=== PATIENT | female | born 1965 | race Caucasian/White ===

== ENCOUNTER 2020-03-20 18:17 | Emergency (ER) | payer BC ==
[2020-03-20] MEDS ORDERED: Lidocaine 1% PF 5 ML VIAL ONE (18:47)
== END 2020-03-20 19:44 | disposition home or self-care (01) ==
LOC: ERS 18:17
DX: S51.852A Open bite of left forearm, initial encounter (principal); W54.0XXA Bitten by dog, initial encounter; E11.9 Type 2 diabetes mellitus without complications; E78.00 Pure hypercholesterolemia, unspecified; E03.9 Hypothyroidism, unspecified
CPT/HCPCS: 12002